=== PATIENT | female | born 1945 | race African-American/Black ===

== ENCOUNTER 2020-04-14 08:29 | Outpatient (CLI) | payer OTHER, SELFPAY ==
--- NOTE | ~2020-04-14 | CT_ITS ---
EXAMINATION: CT abdomen pelvis w con DATE: 04/14/2020 09:12 INDICATION: History of malignant cecal neoplasm; restaging TECHNIQUE: Computed tomography (CT) of the abdomen and pelvis was performed with 100 cc Omnipaque 350 intravenous contrast. Automated exposure control and iterative reconstruction technique were employe d. Exam dose: 1292.87 mGy-cm total exam DLP. COMPARISON: 10/24/2018 CT abdomen pelvis FINDINGS: There is mild dependent discoid atelectasis or less likely scarring at both lung bases. Borderline heart size. No pericardial or pleural effusion. There are numerous small stones in the dependent aspect of the gallbladder. No gallbladder wall thick ening or pericholecystic fluid or stranding or abnormal gallbladder distention. No intrahepatic or ex trahepatic bile duct or pancreatic duct dilatation. Calcified hepatic and granulomas consistent with old granulomatous disease. No hepatic, splenic, panc reatic, adrenal space-occupying mass lesion. No apparent renal space-occupying mass lesion. There is bilateral prominent renal artery calcifications and in the region of the left renal hilum. N o ureteral calculus or hydroureteronephrosis. There is extensive calcification of the abdominal aorta, celiac, mesenteric and iliac arteries. No ab dominal aortic aneurysm. No intraperitoneal or retroperitoneal or pelvic mass lesion or adenopathy or ascites. Probable calcified uterine fibroids. The uterus, adnexal areas and urinary bladder otherwise are unre markable. There is a suture line in the right colon consistent with prior resection of cecal neoplasm. There is another suture line at the sigmoid colon. There is a prominent of fecal material within the colon bu t no bowel obstruction is evident. No intraperitoneal free air. Small fat-containing umbilical hernia. Diffuse idiopathic skeletal hyperostosis of the lower thoracic spine. Severe multilevel degenerative disc disease of the lumbar and lumbosacral spine. There is associated mild retrolisthesis at L5-S1. T here is severe degenerative change at the apophyseal joints, with associated grade 1 anterolisthesis at L4-5. Bilateral prominent hip osteoarthritis. IMPRESSION: Status post right and sigmoid colon resection; no evidence of recurrent malignancy or me tastatic disease Cholelithiasis Extensive atherosclerosis Reviewed, dictated and finalized at [facility]. Reviewed, dictated and finalized at location [facility]. IMPRESSION: Status post right and sigmoid colon resection; no evidence of recu rrent malignancy or metastatic disease Cholelithiasis Extensive atherosclerosis
[2020-04-14 08:59] LABS: Estimated Glomerular Filt Rate > 60
== END 2020-04-14 08:30 | disposition home or self-care (01) ==
PROVIDERS: PCP Internal Medicine; Visit Provider Internal Medicine Hematology & Oncology
DX: C18.0 Malignant neoplasm of cecum (principal); Z98.890 Other specified postprocedural states; K80.20 Calculus of gallbladder without cholecystitis without obstruction; I70.90 Unspecified atherosclerosis
CPT/HCPCS: 36415; 74177; Q9967

== ENCOUNTER 2021-05-17 12:02 | Outpatient (CLI) | payer MEDICARE, SELFPAY ==
--- NOTE | ~2021-05-17 | MM_ITS ---
EXAMINATION: MM screening [facility] BI w flower HISTORY: Screening mammogram TECHNIQUE: Craniocaudal and mediolateral oblique 3-D tomosynthesis images were obtained and synthetic 2-D images were generated. CAD analysis was submitted and interpreted. COMPARISON: 12/03/2019, 11/28/2018, 11/26/2017 BREAST PARENCHYMAL COMPOSITION: The breasts are almost entirely fatty. FINDINGS: Scattered benign-appearing calcifications are present. There is no evidence of suspicious m ass, calcification, or architectural distortion to suggest malignancy in either breast. There has bee n no suspicious interval change. IMPRESSION: 1. No mammographic evidence of malignancy. 2. Recommend routine screening mammography in one year. BI-RADS Category 2: Benign finding(s). Reviewed, dictated and finalized at location [facility].
== END 2021-05-17 12:03 | disposition home or self-care (01) ==
PROVIDERS: PCP Internal Medicine; Visit Provider Nurse Practitioner
DX: Z12.31 Encounter for screening mammogram for malignant neoplasm of breast (principal)
CPT/HCPCS: 77063; 77067

== ENCOUNTER 2021-07-26 08:52 | Outpatient (CLI) | payer MEDICARE, SELFPAY ==
--- NOTE | ~2021-07-26 | CT_ITS ---
EXAMINATION: CT abdomen pelvis w con EXAM DATE: 07/26/2021 09:56 INDICATION: Cecal cancer. TECHNIQUE: Spiral CT of the abdomen and pelvis was performed following intravenous injection of 100 m L Omnipaque 350. Axial, coronal and sagittal images of the abdomen and pelvis were reviewed. The do se-length product (DLP) for this examination was 1240.10 mGy-cm. The exposure was tailored according to patient size (auto mA exposure control), and iterative reconstruction (ASIR) was used as addition al dose reduction technique. Comparison is made to prior examination from 04/14/2020. FINDINGS: The liver, spleen, adrenal glands and pancreas are unremarkable. There are gallstones with in an otherwise unremarkable gallbladder. No evidence of obstructive biliary disease. Portal and sp lenic veins are patent. Kidneys enhance symmetrically. There is no hydronephrosis. Uterus is ante verted. The bladder is unremarkable. There is no retroperitoneal or pelvic lymphadenopathy. There is moderate scattered arteriosclerotic disease. Surgical changes from cecal resection without evidence of local recurrence. There is rectosigmoid emeterio stomosis. The stomach and small bowel are unremarkable. There is expected amount of colonic stool. No free intraperitoneal gas. The heart is normal in size. There are no pericardial or pleural eff usions. The lung bases are unremarkable. There are bony degenerative changes. No osteoblastic or os teolytic lesions identified. IMPRESSION: 1. Colonic surgical changes, stable. 2. Cholelithiasis. Reviewed, dictated and finalized at location [facility].
[2021-07-26 09:45] LABS: Estimated Glomerular Filt Rate > 60
== END 2021-07-26 08:53 | disposition home or self-care (01) ==
LOC: ANHIMG 08:54
PROVIDERS: PCP Internal Medicine; Visit Provider Internal Medicine Hematology & Oncology
DX: C18.0 Malignant neoplasm of cecum (principal); K80.20 Calculus of gallbladder without cholecystitis without obstruction
CPT/HCPCS: 74177; Q9967

== ENCOUNTER 2022-01-31 08:44 | Outpatient (CLI) | payer MEDICARE, SELFPAY ==
[2022-01-31 09:05] LABS: Basophils Percent Auto 0.7 % (0.2-1.2); Eosinophils Absolute Auto 0.1 K/mm3 (0-0.3); Eosinophils Percent Auto 1.1 % (0-4.4); Hematocrit 41.4 % (37.0-47.0); Hemoglobin 12.6 g/dL (12.0-15.0); Immature Granulocyte Absolute 0.01 K/mm3 (0.00-0.031); Immature Granulocyte Percent A 0.2 % (0-0.5); Lymphocytes Absolute Auto 1.96 K/mm3 (0.9-3.2); Lymphocytes Percent Auto 35.1 % (18.3-44.2); Mean Corpuscular HGB Conc 30.4 g/dl (32-36); Mean Corpuscular Hemoglobin 27.4 pg (26-34); Mean Platelet Volume 9.9 fl (7.4-10.4); Monocytes Absolute Auto 0.6 K/mm3 (0.1-0.6); Neutrophils Percent Auto 52.9 % (45.5-73.1); Platelet Count Result 246 k/mm3 (150-375); Red Cell Distribution Width 14.6 % (11.5-14.5); White Blood Count 5.6 K/mm3 (4.5-10.0)
[2022-01-31 09:08] LABS: Blood Urea Nitrogen 19 mg/dL (8-26); Carbon Dioxide 28 mmol/L (22-30); Chloride 101 mmol/L (98-109); Estimated Glomerular Filt Rate > 60; Glucose 143 mg/dL (70-105); Potassium 5.4 mmol/L (3.5-4.9); Sodium 141 mmol/L (138-146)
[2022-01-31 10:44] LABS: Alanine Aminotransferase 15 U/L (4-35); Albumin Level 4.7 g/dL (3.5-5.1); Alkaline Phosphatase 81 U/L (38-126); Anion Gap 9 mmol/L (8-16); Aspartate Amino Transferase 42 U/L (14-36); Bilirubin,Total 0.6 mg/dL (0.2-1.3); Blood Urea Nitrogen 20 mg/dL (7-17); Calcium 9.5 mg/dL (8.4-10.2); Carbon Dioxide 28 mmol/L (22-30); Chloride 102 mmol/L (98-107); Estimated Glomerular Filt Rate > 60; Glucose 148 mg/dL (65-110); Potassium 5.6 mmol/L (3.4-5.0); Sodium 139 mmol/L (137-145)
[2022-01-31 11:06] LABS: Carcinoembryonic Antigen 4.8 ng/mL (0.0-3.0)
== END 2022-01-31 08:45 | disposition home or self-care (01) ==
LOC: ANHLAB 08:45
PROVIDERS: PCP Internal Medicine; Visit Provider Internal Medicine Hematology & Oncology
DX: C18.0 Malignant neoplasm of cecum (principal)
CPT/HCPCS: 36415; 80053; 82378; 85025

== ENCOUNTER 2022-08-09 09:52 | Outpatient (CLI) | payer MEDICARE, SELFPAY ==
[2022-08-09 10:07] LABS: Basophils Percent Auto 0.6 % (0.2-1.2); Eosinophils Absolute Auto 0.1 K/mm3 (0-0.3); Eosinophils Percent Auto 1.1 % (0-4.4); Hematocrit 40.8 % (37.0-47.0); Immature Granulocyte Absolute 0.02 K/mm3 (0.00-0.031); Immature Granulocyte Percent A 0.3 % (0-0.5); Lymphocytes Absolute Auto 2.45 K/mm3 (0.9-3.2); Lymphocytes Percent Auto 38.3 % (18.3-44.2); Mean Corpuscular HGB Conc 31.9 g/dl (32-36); Mean Corpuscular Hemoglobin 27.1 pg (26-34); Mean Corpuscular Volume 85.2 fl (80-100); Mean Platelet Volume 10.1 fl (7.4-10.4); Monocytes Absolute Auto 0.6 K/mm3 (0.1-0.6); Monocytes Percent Auto 9.7 % (2.6-8.5); Neutrophils Absolute Auto 3.2 K/mm3 (1.3-6.7); Platelet Count Result 234 k/mm3 (150-375); Red Blood Count 4.79 M/mm3 (4.2-5.4); White Blood Count 6.4 K/mm3 (4.5-10.0)
[2022-08-09 10:11] LABS: Blood Urea Nitrogen 16 mg/dL (8-26); Carbon Dioxide 25 mmol/L (22-30); Chloride 103 mmol/L (98-109); Estimated Glomerular Filt Rate > 60; Glucose 158 mg/dL (70-105); Ionized Calcium (POC) 1.18 mmol/L (1.11-1.31); Potassium 4.4 mmol/L (3.5-4.9); Sodium 141 mmol/L (138-146)
[2022-08-09 11:04] LABS: Alanine Aminotransferase 23 U/L (6-35); Albumin Level 4.8 g/dL (3.5-5.1); Alkaline Phosphatase 92 U/L (38-126); Anion Gap 14 mmol/L (8-16); Aspartate Amino Transferase 31 U/L (14-36); Bilirubin,Total 0.8 mg/dL (0.2-1.3); Blood Urea Nitrogen 17 mg/dL (7-17); Calcium 9.9 mg/dL (8.4-10.2); Carbon Dioxide 24 mmol/L (22-30); Chloride 101 mmol/L (98-107); Estimated Glomerular Filt Rate > 60; Glucose 158 mg/dL (65-110); Potassium 4.4 mmol/L (3.4-5.0); Sodium 139 mmol/L (137-145)
[2022-08-09 11:34] LABS: Carcinoembryonic Antigen 4.9 ng/mL (0.0-3.0)
== END 2022-08-09 09:53 | disposition home or self-care (01) ==
LOC: ANHLAB 09:54
PROVIDERS: PCP Internal Medicine; Visit Provider Internal Medicine Hematology & Oncology
DX: C18.0 Malignant neoplasm of cecum (principal)
CPT/HCPCS: 36415; 80047; 80053; 82378; 85025

== ENCOUNTER 2023-08-30 09:37 | Outpatient (CLI) | payer OTHER, SELFPAY ==
--- NOTE | ~2023-08-30 | CT_ITS ---
EXAMINATION: CT abdomen pelvis w con DATE: 08/30/2023 10:32 INDICATION: Cancer of the cecum. TECHNIQUE: Computed tomography (CT) of the abdomen and pelvis was performed with 100 mL Omnipaque 350 intravenous contrast. Automated exposure control and iterative reconstruction technique were employe d. The dose-length product was 1301.23 mGy-cm. COMPARISON: CT abdomen and pelvis 07/26/2021 FINDINGS: The visualized portions of the lung bases demonstrate mild atelectasis. There is mild scarr ing in paraspinal right lower lobe. No pleural effusion. There is left ventricular enlargement of the heart. No pericardial effusion. There are coronary artery calcifications. A calcification in the josé er is consistent with old granulomatous disease. The spleen is normal. There are gallstones in the ga llbladder, which is normal in size. The pancreas and adrenal glands are normal. There is focal cortic al thinning of right kidney. Left kidney is normal. There is calcified atherosclerosis of the aorta a nd many of the other arteries. There is an intrauterine device in expected position. There is an anas tomosis in the sigmoid colon. There are changes of right hemicolectomy. There are no pathologically e nlarged lymph nodes. There is no free intraperitoneal fluid. There is severe osteoarthritis of the hi ps. There is severe lumbar and thoracic spondylosis. IMPRESSION: 1. No evidence of metastatic disease. Reviewed, dictated and finalized at location [facility].
[2023-08-30 10:26] LABS: Estimated Glomerular Filt Rate > 60
== END 2023-08-30 09:38 | disposition home or self-care (01) ==
PROVIDERS: PCP Family Medicine Adolescent Medicine; Visit Provider Internal Medicine Hematology & Oncology
DX: C18.0 Malignant neoplasm of cecum (principal)
CPT/HCPCS: 74177; Q9967

== ENCOUNTER 2023-09-26 02:31 | Day surgery (SDC) | payer OTHER, SELFPAY ==
[2023-09-18 13:08] VITALS: BMI 38.1
[2023-09-26 11:29] VITALS: BP 149/92; PULSE 106; RESP 20; TEMP 36.6; O2SAT 99
--- NOTE | 2023-09-26 11:48 | PM.HPGS ---
History of Present Illness History of Present Illness Consent: Risks, benefits, and alternatives have been discussed and questions answered. Patient agrees to proceed with procedure. Chief complaint: cecum cancer Narrative: Lucien Raphael is a 77 year old female Presents for colonoscopy. Patient found to have carcinoma of the cecum in 2018. She also had a mass of the sigmoid colon at that time underwent resection of ventral E. Most recent colonoscopy 2019 revealed a colon polyp that was removed. Patient presents today for surveillance colonoscopy. She reports that her weight appetite and bowel movements are normal. Patient denies abdominal pain. She has had no bleeding. Currently follows with Oncology. Review of Systems Review of Systems: Review of systems noncontributory. 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 Aneurysm of unspecified site Cerebral aneurysm, nonruptured CVA (cerebral vascular accident) Pure hypercholesterolemia Surgical History Surgical History (Updated 06/11/23 @ 06:46 by Phan Victoria MD) History of cerebral aneurysm repair Family History Family History Sibling Patient's sister is in good health Family history of malignant neoplasm Family history of diabetes mellitus in first degree relative Patient's sister is Diabetes mellitus Father Family history of malignant neoplasm Patient's father is Mother Family history of diabetes mellitus in first degree relative Diabetes mellitus Other Hypertension Social History Social History (Updated 06/11/23 @ 10:46 by Silvina Cassidy CMA) Smoking status: Never smoker Alcohol intake: current Substance use: never Substance use type: does not use Lack of Transportation: YES Lack of Food: Never True Current Housing: I Have Housing Concerned About Future Housing: No Difficulty Paying Gas/Electric Bills: No Difficulty Paying for Meds: No Currently Unemployed: No Education: Grade School Difficulty w/ Childcare or Family Care: Decline to Answer Living arrangements: with family Spiritual care concerns: No Meds Home Medications and Allergies Home Medications Medication Instructions Recorded Confirmed Type aspirin 81 mg tablet,delayed 81 mg PO DAILY 10/21/19 09/18/23 History release (Aspir-Low) cholecalciferol (vitamin D3) 10 400 unit PO DAILY 10/21/19 09/18/23 History mcg (400 unit) capsule flaxseed oil 1,000 mg capsule 1,000 mg PO DAILY 10/21/19 09/18/23 History garlic 500 mg capsule 500 mg PO DAILY 11/16/21 09/18/23 History multivitamin (Multiple Vitamins 1 tablet PO DAILY 11/16/21 09/18/23 History tablet) vitamin B complex (B 1 tablet PO DAILY 11/16/21 09/18/23 History Complex-Vitamin B12 tablet) empagliflozin 10 mg tablet 10 mg PO DAILY #90 tabs 06/11/23 09/18/23 Rx (Jardiance) linagliptin 5 mg tablet (Tradjenta) 5 mg PO QAM #90 tabs 06/11/23 09/18/23 Rx metformin 1,000 mg tablet 1,000 mg PO BID #180 tabs 06/11/23 09/18/23 Rx Allergies Allergy/AdvReac Type Severity Reaction Status Date / Time No Known Allergies Allergy Verified 09/26/23 11:28 Vital Signs Vital Signs - 24 hr 09/26/23 11:29 Temperature 97.9 F Pulse Rate 106 H Respiratory Rate 20 Blood Pressure 149/92 H Pulse Oximetry 99 Oxygen Delivery Room Air Exam Narrative: Physical exam reveals patient to be alert. Vital signs stable. HEENT exam is unremarkable. Patient is anicteric. Lungs are clear to auscultation and percussion. Heart is without murmur or extra sounds. Abdomen bowel sounds are present soft nontender with no organomegaly. Digital external rectal exam normal. Assessment and Plan Assessment and plan (1) History of colon cancer: Code(s): Z85.038 - Personal history of
[2023-09-26 12:10] LABS: Glucose Point of Care 147 mg/dl (65-105)
[2023-09-26] MEDS: LACTATED RINGERS 1,000 ML 150 ML IV CONT (12:12)
--- NOTE | 2023-09-26 12:36 | WPDANESEPPF ---
Anes - Initial Pre Proc Eval Procedure: Operation Date: 09/26/23 12:30 Proposed Procedures p Colonoscopy - Orlando Camargo MD Date/Time: 09/26/23 12:36 Surgeon: Orlando Camargo MD Pre Op Diagnosis: cecum cancer Patient Data Age: 77 Gender: F Height: 1.65 m Weight: 105.4 kg Last Vital Signs Temp 97.9 F 09/26/23 11:29 Pulse 106 H 09/26/23 11:29 Resp 20 09/26/23 11:29 BP 149/92 H 09/26/23 11:29 Pulse Ox 99 09/26/23 11:29 O2 Del Method Room Air 09/26/23 11:29 Allergies Allergy/AdvReac Type Severity Reaction Status Date / Time No Known Allergies Allergy Verified 09/26/23 11:28 Home Medications Medication Instructions Recorded Confirmed Type aspirin 81 mg tablet,delayed 81 mg PO DAILY 10/21/19 09/18/23 History release (Aspir-Low) cholecalciferol (vitamin D3) 10 400 unit PO DAILY 10/21/19 09/18/23 History mcg (400 unit) capsule flaxseed oil 1,000 mg capsule 1,000 mg PO DAILY 10/21/19 09/18/23 History garlic 500 mg capsule 500 mg PO DAILY 11/16/21 09/18/23 History multivitamin (Multiple Vitamins 1 tablet PO DAILY 11/16/21 09/18/23 History tablet) vitamin B complex (B 1 tablet PO DAILY 11/16/21 09/18/23 History Complex-Vitamin B12 tablet) empagliflozin 10 mg tablet 10 mg PO DAILY #90 tabs 06/11/23 09/18/23 Rx (Jardiance) linagliptin 5 mg tablet (Tradjenta) 5 mg PO QAM #90 tabs 06/11/23 09/18/23 Rx metformin 1,000 mg tablet 1,000 mg PO BID #180 tabs 06/11/23 09/18/23 Rx Laboratory Tests 09/26/23 12:08 POC Capillary Glucose 147 H mg/dl (65-105) Patient hx anesthesia problems: none Family hx anesthesia problems: none Results Review: All pre-operative results and documents have been reviewed as part of the pre-operative evaluation. [facility] Past Medical History Medical History (Updated 09/26/23 @ 11:50 by Orlando Camargo MD) Adenocarcinoma of cecum Adenocarcinoma of sigmoid colon Aneurysm of unspecified site Cerebral aneurysm, nonruptured CVA (cerebral vascular accident) Pure hypercholesterolemia Surgical History Surgical History (Updated 06/11/23 @ 06:46 by Phan Victoria MD) History of cerebral aneurysm repair Family History Family History Sibling Patient's sister is in good health Family history of malignant neoplasm Family history of diabetes mellitus in first degree relative Patient's sister is Diabetes mellitus Father Family history of malignant neoplasm Patient's father is Mother Family history of diabetes mellitus in first degree relative Diabetes mellitus Other Hypertension Social History Social History (Updated 06/11/23 @ 10:46 by Silvina Cassidy CMA) Smoking status: Never smoker Alcohol intake: current Substance use: never Substance use type: does not use Lack of Transportation: YES Lack of Food: Never True Current Housing: I Have Housing Concerned About Future Housing: No Difficulty Paying Gas/Electric Bills: No Difficulty Paying for Meds: No Currently Unemployed: No Education: Grade School Difficulty w/ Childcare or Family Care: Decline to Answer Living arrangements: with family Spiritual care concerns: No Anes - Eval Final PreProcedure Day of Procedure 09/26/23 12:36 Patient weight: obese Heart: regular rate and rhythm Lungs: clear to auscultation Neurological: alert and oriented Last oral intake: >/= 8 hours ASA classification: III Emergent: no Anesthetic plan: proceed Anesthesia type and monitoring: general GIVS and standard monitoring Results Review: All pre-operative results and documents have been reviewed as part of the pre-operative evaluation. Informed Consent: The patient's anesthetic plan and its attendant risks and benefits were discussed with the patient/family/POA. Questions were solicited and answers provided to the satisfaction of the patient/family/POA.
[2023-09-26 13:06] VITALS: BP 124/71; PULSE 95; RESP 24; O2SAT 100
[2023-09-26 13:16] VITALS: BP 113/83; PULSE 94; RESP 24; O2SAT 100
[2023-09-26 13:26] VITALS: BP 141/58; PULSE 96; RESP 16; O2SAT 98
== END 2023-09-26 13:43 | disposition home or self-care (01) ==
PROVIDERS: PCP Family Medicine Adolescent Medicine; Visit Provider Internal Medicine Gastroenterology
PROC: 0DJD8ZZ Inspection of Lower Intestinal Tract, Via Natural or Artificial Opening Endoscopic (ICD-10-PCS; CPT 45378; principal; 2023-09-26 12:30)
DX: Z12.11 Encounter for screening for malignant neoplasm of colon (principal); D12.6 Benign neoplasm of colon, unspecified; K63.5 Polyp of colon; Z85.038 Personal history of other malignant neoplasm of large intestine; Z90.49 Acquired absence of other specified parts of digestive tract; E78.00 Pure hypercholesterolemia, unspecified; Z86.73 Personal history of transient ischemic attack (TIA), and cerebral infarction without residual deficits; E66.9 Obesity, unspecified; Z68.38 Body mass index [BMI] 38.0-38.9, adult; Z79.84 Long term (current) use of oral hypoglycemic drugs; Z79.82 Long term (current) use of aspirin
CPT/HCPCS: 45385; 82948; 88305; J7120

== ENCOUNTER 2024-10-08 08:21 | Outpatient (CLI) | payer OTHER, SELFPAY ==
[2024-10-08 08:42] LABS: Basophils Percent Auto 0.7 % (0.2-1.2); Eosinophils Absolute Auto 0.1 K/mm3 (0-0.3); Eosinophils Percent Auto 1.3 % (0-4.4); Hematocrit 41.9 % (37.0-47.0); Hemoglobin 13.3 g/dL (12.0-15.0); Immature Granulocyte Absolute 0.01 K/mm3 (0.00-0.031); Immature Granulocyte Percent A 0.2 % (0-0.5); Lymphocytes Absolute Auto 1.82 K/mm3 (0.9-3.2); Lymphocytes Percent Auto 29.9 % (18.3-44.2); Mean Corpuscular HGB Conc 31.7 g/dl (32-36); Mean Corpuscular Hemoglobin 27.6 pg (26-34); Mean Corpuscular Volume 86.9 fl (80-100); Mean Platelet Volume 10.5 fl (7.4-10.4); Monocytes Absolute Auto 0.6 K/mm3 (0.1-0.6); Monocytes Percent Auto 9.2 % (2.6-8.5); Neutrophils Absolute Auto 3.6 K/mm3 (1.3-6.7); Neutrophils Percent Auto 58.7 % (45.5-73.1); Platelet Count Result 238 k/mm3 (150-375); Red Blood Count 4.82 M/mm3 (4.2-5.4); Red Cell Distribution Width 14.7 % (11.5-14.5); White Blood Count 6.1 K/mm3 (4.5-10.0)
[2024-10-08 09:48] LABS: Alanine Aminotransferase 17 U/L (6-35); Albumin Level 4.8 g/dL (3.5-5.1); Alkaline Phosphatase 91 U/L (38-126); Anion Gap 15 mmol/L (4-12); Aspartate Amino Transferase 26 U/L (14-36); Bilirubin,Total 0.8 mg/dL (0.2-1.3); Blood Urea Nitrogen 22 mg/dL (7-17); Calcium 9.7 mg/dL (8.4-10.2); Carbon Dioxide 25 mmol/L (22-30); Chloride 100 mmol/L (98-107); Estimated Glomerular Filt Rate > 60; Glucose 165 mg/dL (65-110); Potassium 4.2 mmol/L (3.4-5.0); Sodium 140 mmol/L (137-145)
[2024-10-08 10:17] LABS: Carcinoembryonic Antigen 5.5 ng/mL (0.0-3.0)
== END 2024-10-08 08:22 | disposition home or self-care (01) ==
LOC: ANHLAB 08:23
PROVIDERS: PCP Family Medicine Adolescent Medicine; Visit Provider Internal Medicine Hematology & Oncology
DX: C18.0 Malignant neoplasm of cecum (principal)
CPT/HCPCS: 36415; 80053; 82378; 85025

== ENCOUNTER 2024-10-28 10:14 | Outpatient (CLI) | payer OTHER, SELFPAY ==
--- NOTE | ~2024-10-28 | CT_ITS ---
EXAMINATION: CT chest abdomen pelvis w con DATE: 10/28/2024 11:15 INDICATION: Cancer of the cecum. TECHNIQUE: Computed tomography (CT) of the chest, abdomen, and pelvis was performed with 100 mL Omnip aque 350 intravenous contrast. Automated exposure control and iterative reconstruction technique were employed. The dose-length product was 1632.28 mGy-cm. COMPARISON: CT abdomen and pelvis 08/30/2023 FINDINGS: CHEST CT: The lungs demonstrate mild atelectasis. No pleural effusion. The heart size is normal. There are brandon nary artery calcifications. No pericardial effusion. There is severe thoracic spondylosis. ABDOMEN/PELVIS CT: The liver, spleen, pancreas, adrenal glands, and right kidney are normal. There is a 5 mm cyst in lef t kidney. There are gallstones in the gallbladder, which is normal in size. There is an anastomosis i n the sigmoid colon. There are changes of right hemicolectomy. There are no pathologically enlarged l ymph nodes. There is no free intraperitoneal fluid. There is calcified atherosclerosis of the aorta a nd many of the other arteries. There is severe thoracic spondylosis. IMPRESSION: 1. No evidence of metastatic disease. Reviewed, dictated and finalized at location A. PROGRAM DIRECTOR
[2024-10-28 11:10] LABS: Estimated Glomerular Filt Rate 53
== END 2024-10-28 10:15 | disposition home or self-care (01) ==
PROVIDERS: PCP Family Medicine Adolescent Medicine; Visit Provider Internal Medicine Hematology & Oncology
DX: C18.0 Malignant neoplasm of cecum (principal)
CPT/HCPCS: 71260; 74177; Q9967